=== PATIENT | female | born 1970 | race Caucasian/White ===

== ENCOUNTER 2017-05-02 04:54 | Emergency (ER) | payer BC, OTHER ==
[~2017-05-02] VITALS: Ht 170.2 cm; Wt 88.5 kg
[2017-05-02 05:20] VITALS: BP 134/98
--- NOTE | 2017-05-02 05:45 | NUR ---
PT'S NAME CALLED 3 TIMES IN WAITING ROOM, NO RESPONSE. NO PT CAME FORTH. WILL TRY AGAIN
--- NOTE | 2017-05-02 06:10 | NUR ---
CALLED PT'S NAME 3 TIMES WITH NO RESPONSE, PER TRANSPLANT RN PT LEFT THE WAITING ROOM. MADE AWARE
--- NOTE | 2017-05-02 06:11 | NUR ---
Patient left without being seen by ER Physician
== END 2017-05-02 06:13 | disposition left against medical advice (07) ==
LOC: ER 04:57
DX: Z53.21 Procedure and treatment not carried out due to patient leaving prior to being seen by health care provider (principal)
CPT/HCPCS: A4606; Z7610